=== PATIENT | male | born 1965 | race Caucasian/White ===

== ENCOUNTER 2017-10-28 18:51 | Inpatient (IN) | payer OTHER ==
[~2017-10-28] VITALS: Ht 182.9 cm; Wt 88.6 kg
[2017-10-28 18:55] VITALS: Ht 182.9 cm; Wt 88.6 kg
[2017-10-28 19:41] LABS: microscopic required? NO
[2017-10-28 19:52] LABS: UA SPECIFIC GRAVITY 1.015 (1.005-1.035); urine erythrocyte NEGATIVE (NEGATIVE)
[2017-10-28 20:01] LABS: AMPHETAMINE QUAL UR NONE DETECTED (NEG <=1000)
[2017-10-28 20:26] LABS: BASOPHIL % 0.3 % (0-2); PLATELET COUNT 335 x10^3mcL (130-400); RED CELL DISTRIBUTION WIDTH 14.3 % (11.5-14.5)
[2017-10-28 20:38] LABS: CALCIUM 8.6 mg/dL (8.5-10.1); CARBON DIOXIDE 20.7 mmol/L (21-32); CHLORIDE SERUM 106 mmol/L (98-107); CREATININE SERUM 0.7 mg/dL (0.7-1.3); GFR1 > 60 mL/min; GLUCOSE SERUM 100 mg/dL (74-106); POTASSIUM SERUM 3.5 mmol/L (3.5-5.1); SODIUM SERUM 141 mmol/L (136-145)
[2017-10-28 20:48] LABS: ALKALINE PHOSPHATASE 88 U/L (46-116); ALT/SGPT 28 U/L (16-63); AMYLASE 43 U/L (25-115); AST/SGOT 16 U/L (15-37); BILIRUBIN TOTAL 0.81 mg/dL (0.20-1.00); LIPASE 104 IU/L (73-393); MAGNESIUM 2.1 mg/dL (1.8-2.4); T4(THYROXINE) 7.6 ug/dL (4.7-13.3); TOTAL PROTEIN, SERUM 6.9 g/dL (6.4-8.2)
[2017-10-28 20:49] LABS: CHOLESTEROL 238 mg/dL (<200); HDL CHOLESTEROL 73 mg/dL (40-60)
[2017-10-28 22:25] LABS: PHOSPHOROUS 2.5 mg/dL (2.5-4.9)
[2017-10-28 22:28] LABS: CHOLESTEROL/HDL RATIO 3.4
[2017-10-28 22:32] LABS: FREE T4 1.04 ng/dL (0.76-1.46); FREE THYROXINE INDEX 2.7 ug/dL (1.4-4.5); T4(THYROXINE) 7.8 ug/dL (4.7-13.3)
[2017-10-28 22:36] VITALS: BP 189/111
[2017-10-29 01:15] VITALS: BP 134/85
[2017-10-29 06:08] VITALS: BP 123/88
[2017-10-29 07:25] LABS: BASOPHIL % 0.4 % (0-2); PLATELET COUNT 297 x10^3mcL (130-400); RED CELL DISTRIBUTION WIDTH 14.4 % (11.5-14.5)
[2017-10-29 07:44] LABS: CALCIUM 8.1 mg/dL (8.5-10.1); CARBON DIOXIDE 25.6 mmol/L (21-32); CHLORIDE SERUM 105 mmol/L (98-107); CREATININE SERUM 0.8 mg/dL (0.7-1.3); GFR1 > 60 mL/min; GLUCOSE SERUM 92 mg/dL (74-106); POTASSIUM SERUM 4.1 mmol/L (3.5-5.1); SODIUM SERUM 140 mmol/L (136-145)
[2017-10-29 08:59] VITALS: BP 142/98
[2017-10-29 09:15] LABS: T3 TOTAL 1.21 ng/mL
[2017-10-29 13:08] VITALS: BP 126/79
[2017-10-29 17:16] VITALS: BP 118/77
[2017-10-29 20:56] VITALS: BP 130/94
[2017-10-30 05:45] VITALS: BP 145/94
[2017-10-30] MEDS ORDERED: LIPI10 PO (06:19)
[2017-10-30 06:22] LABS: BASOPHIL % 0.3 % (0-2); PLATELET COUNT 289 x10^3mcL (130-400)
[2017-10-30] MEDS ORDERED: METOPROLOL TART25 M1 PO (06:22)
[2017-10-30 06:42] LABS: CALCIUM 8.2 mg/dL (8.5-10.1); CARBON DIOXIDE 25.2 mmol/L (21-32); CHLORIDE SERUM 106 mmol/L (98-107); CREATININE SERUM 0.7 mg/dL (0.7-1.3); GFR1 > 60 mL/min; GLUCOSE SERUM 96 mg/dL (74-106); MAGNESIUM 2.1 mg/dL (1.8-2.4); PHOSPHOROUS 3.2 mg/dL (2.5-4.9); POTASSIUM SERUM 4.8 mmol/L (3.5-5.1); SODIUM SERUM 140 mmol/L (136-145)
[2017-10-30 10:02] VITALS: BP 132/79
[2017-10-30 14:30] VITALS: BP 122/67
[2017-10-30 17:36] VITALS: BP 124/85
[2017-10-30 20:44] VITALS: BP 117/87
[2017-10-31 05:11] VITALS: BP 128/90
[2017-10-31 06:05] LABS: BASOPHIL % 0.4 % (0-2); PLATELET COUNT 288 x10^3mcL (130-400); RED CELL DISTRIBUTION WIDTH 13.9 % (11.5-14.5)
[2017-10-31 06:45] LABS: CALCIUM 8.2 mg/dL (8.5-10.1); CARBON DIOXIDE 25.3 mmol/L (21-32); CHLORIDE SERUM 105 mmol/L (98-107); CREATININE SERUM 0.7 mg/dL (0.7-1.3); GFR1 > 60 mL/min; GLUCOSE SERUM 91 mg/dL (74-106); MAGNESIUM 2.1 mg/dL (1.8-2.4); PHOSPHOROUS 3.3 mg/dL (2.5-4.9); POTASSIUM SERUM 4.3 mmol/L (3.5-5.1); SODIUM SERUM 137 mmol/L (136-145)
[2017-10-31 08:59] VITALS: BP 138/86
[2017-10-31 09:03] VITALS: BP 138/86
== END 2017-10-31 12:29 | disposition home or self-care (01) | DRG 93 ==
LOC: ED 18:51 → DU 21:25 → MU 10-31 11:52
PROVIDERS: Emergency Medicine; Family Medicine; Family Medicine Sports Medicine
DX: G92 Toxic encephalopathy (principal); F17.210 Nicotine dependence, cigarettes, uncomplicated; I45.10 Unspecified right bundle-branch block; E78.00 Pure hypercholesterolemia, unspecified; F12.10 Cannabis abuse, uncomplicated; E78.5 Hyperlipidemia, unspecified; G90.8 Other disorders of autonomic nervous system; E83.51 Hypocalcemia
CPT/HCPCS: 82962; 83880; 84439; A9577; G0480; J2405; J7030; J8597; Q0092

== ENCOUNTER 2019-09-22 02:20 | Emergency (ER) | payer OTHER ==
[~2019-09-22 02:20] MED LIST: LIPI10 PO; METOPROLOL TART25 M1 PO
== END 2019-09-22 04:20 | disposition left against medical advice (07) ==
LOC: ED 02:20
DX: Z53.1 Procedure and treatment not carried out because of patient's decision for reasons of belief and group pressure (principal)